=== PATIENT | female | born 1950 ===

== ENCOUNTER → 2017-06-28 | Outpatient (REF) | LOC: ZLAB.WCH 18:15 | DX: Z01.89 Encounter for other specified special examinations (principal) ==

== ENCOUNTER → 2017-07-02 | Outpatient (REF) ==
[~2017-07-02] MED LIST: DULCOLAX TAB5 MG PO; EXCEDRIN1 TAB PO; FLONASEALLERGY NS; GOOD NEIGH1200 MG/15; INCRUSE EL62.5 MCG/A IH; IPRATROPIUM BROM3 M1 IH; LOVENOX 4040 MG/0.4 SQ; NEURONTIN300 MG/CAP; PROTONIX 40MG T40 MG PO; PULMICORT0.5 MG/2 M IH; ROBITUSSIN A-C S1 M1 PO; SOLU-MEDRO125 MG/21; TESSALON P100 MG/CAP PO; VANCOCIN HCL1 GM IV; ZOSYN 3 GM-0.371 PD1 IV
== END ==
LOC: ZLAB.WCH 18:30
DX: Z01.89 Encounter for other specified special examinations (principal)

== ENCOUNTER 2017-07-03 12:49 | Outpatient (CLI) | payer SELFPAY ==
[~2017-07-03] VITALS: Ht 170 cm; Wt 92.5 kg
[2017-07-03] MEDS ORDERED: IPRATROPIUM BROM3 M1 IH (14:43)
[2017-07-03] MEDS ORDERED: FLONASEALLERGY NS (14:43)
[2017-07-03] MEDS ORDERED: INCRUSE EL62.5 MCG/A IH (14:44)
[2017-07-03] MEDS ORDERED: LOVENOX 4040 MG/0.4 SQ (14:49)
[2017-07-03] MEDS ORDERED: NEURONTIN300 MG/CAP (14:50)
[2017-07-03] MEDS ORDERED: PULMICORT0.5 MG/2 M IH (14:51)
[2017-07-03] MEDS ORDERED: PROTONIX 40MG T40 MG PO (14:51)
[2017-07-03] MEDS ORDERED: SOLU-MEDRO125 MG/21 (14:53)
[2017-07-03] MEDS ORDERED: ZOSYN 3 GM-0.371 PD1 IV (14:54)
[2017-07-03] MEDS ORDERED: VANCOCIN HCL1 GM IV (14:54)
[2017-07-03] MEDS ORDERED: DULCOLAX TAB5 MG PO (14:55)
[2017-07-03] MEDS ORDERED: EXCEDRIN1 TAB PO (14:55)
[2017-07-03] MEDS ORDERED: GOOD NEIGH1200 MG/15 (14:55)
[2017-07-03] MEDS ORDERED: ROBITUSSIN A-C S1 M1 PO (14:56)
[2017-07-03] MEDS ORDERED: TESSALON P100 MG/CAP PO (14:57)
== END 2017-07-03 14:40 | disposition home or self-care (01) ==
LOC: EUO 12:49
DX: J18.1 Lobar pneumonia, unspecified organism (principal); J43.9 Emphysema, unspecified; R09.02 Hypoxemia
CPT/HCPCS: C1751

== ENCOUNTER → 2017-07-04 | Outpatient (REF) | LOC: ZLAB.WCH 17:25 | DX: Z01.89 Encounter for other specified special examinations (principal) ==

== ENCOUNTER → 2017-07-09 | Outpatient (REF) | LOC: ZLAB.WCH 10:13 | DX: Z01.89 Encounter for other specified special examinations (principal) ==